=== PATIENT | female | born 1995 | race Two or more races ===

== ENCOUNTER 2022-01-16 06:33 | Emergency (ER) | payer OTHER ==
[~2022-01-16] VITALS: Ht 167.6 cm; Wt 127.0 kg
[2022-01-16] MEDS ORDERED: PANADOL (06:57)
[2022-01-16] MEDS ORDERED: TYLENOL (06:57)
== END 2022-01-16 09:15 | disposition home or self-care (01) ==
LOC: ER 06:33
DX: N94.6 Dysmenorrhea, unspecified (principal); N83.209 Unspecified ovarian cyst, unspecified side; R11.10 Vomiting, unspecified

== ENCOUNTER 2022-05-29 18:11 | Emergency (ER) | payer OTHER ==
[~2022-05-29] VITALS: Ht 167.6 cm; Wt 108.0 kg
[~2022-05-29 18:11] MED LIST: PANADOL; TYLENOL
== END 2022-05-30 00:18 | disposition home or self-care (01) ==
LOC: ER 18:11
DX: R10.84 Generalized abdominal pain (principal)

== ENCOUNTER 2023-01-29 10:06 | Emergency (ER) | payer OTHER ==
[~2023-01-29] VITALS: Ht 167.6 cm; Wt 117.9 kg
== END 2023-01-29 18:04 | disposition home or self-care (01) ==
LOC: ER 10:06
DX: K29.60 Other gastritis without bleeding (principal)

== ENCOUNTER 2024-10-23 11:37 | Emergency (ER) | payer OTHER ==
[~2024-10-23] VITALS: Ht 167.6 cm; Wt 104.3 kg
[2024-10-23] MEDS ORDERED: KETO10TA2 PO (13:07)
[2024-10-23] MEDS ORDERED: NORFLEX100MG PO (13:07)
[2024-10-23] MEDS ORDERED: KETOROLAC TROMETHAMINE 60 MG VIAL IM ONE (13:15)
[2024-10-23] MEDS ORDERED: ORPHENADRINE CITRATE 30 MG/ML AMPUL IM ONE (13:15)
== END 2024-10-23 13:14 | disposition home or self-care (01) ==
LOC: ER 11:39
DX: M25.562 Pain in left knee (principal); M25.561 Pain in right knee